=== PATIENT | male | born 1990 | race African-American/Black ===

== ENCOUNTER 2017-05-02 14:02 | Emergency (ER) | payer SELFPAY ==
[~2017-05-02] VITALS: Ht 172.7 cm; Wt 68.0 kg
[2017-05-02 15:25] LABS: BASOPHILS % (AUTO) 0.7 % (0.0-2.0); EOSINOPHILS % (AUTO) 0.1 % (0.0-3.0); HEMATOCRIT 48.1 % (42.0-52.0); LYMPHOCYTES % (AUTO) 18.5 % (20.0-45.0); MEAN CORPUSCULAR VOLUME 73 FL (80-99); MONOCYTES % (AUTO) 6.6 % (1.0-10.0); NEUTROPHILS % (AUTO) 74.1 % (45.0-75.0); PLATELET COUNT 322 K/UL (150-450); RED CELL DISTRIBUTION WIDTH 12.9 % (11.6-14.8); WHITE BLOOD COUNT 13.7 K/UL (4.8-10.8)
[2017-05-02 15:39] LABS: ALANINE AMINOTRANSFERASE 20 U/L (12-78); ALBUMIN 4.5 G/DL (3.4-5.0); ALBUMIN/GLOBULIN RATIO 1.2 (1.0-2.7); ALKALINE PHOSPHATASE 78 U/L (46-116); ANION GAP 9 mmol/L (5-15); ASPARTATE AMINO TRANSFERASE 17 U/L (15-37); BILIRUBIN,TOTAL 1.5 MG/DL (0.2-1.0); BLOOD UREA NITROGEN 9 mg/dL (7-18); CALCIUM 9.7 MG/DL (8.5-10.1); CARBON DIOXIDE 28 MMOL/L (21-32); CHLORIDE 101 MMOL/L (98-107); CREATININE 1.1 MG/DL (0.55-1.30); POTASSIUM 3.3 MMOL/L (3.5-5.1); SODIUM 138 MMOL/L (136-145)
[2017-05-02 15:48] LABS: BILIRUBIN,DIRECT 0.2 MG/DL (0.0-0.3)
[2017-05-02 19:00] VITALS: BP 139/76
[2017-05-02 21:00] VITALS: BP 141/86
--- NOTE | 2017-05-02 21:05 | Emergency Room Report ---
History of Present Illness General Chief Complaint: Behavioral Complaint Source: EMS (ROSE SMITH) Present Illness HPI The patient is a 27-year-old male brought in by EMS for further evaluation. They state that the patient was acting bizarre and was trespassing on private property when police were called. The patient was then brought here for evaluation. He does not provide any information. (ROSE SMITH) Allergies: Coded Allergies: UNABLE TO ASSESS (Unverified , 05/02/17) Patient History Past Medical History: see triage record Pertinent Family History: unable to obtain Reviewed Nursing Documentation: PMH: Agreed, PSxH: Agreed (ROSE SMITH) Nursing Documentation-PMH Past Medical History: Deferred (ROSE SMITH) Review of Systems All Other Systems: limited (ROSE SMITH.ALester) Physical Exam Vital Signs Date Time Temp Pulse Resp B/P (MAP) Pulse Ox O2 Delivery O2 Flow Rate FiO2 05/02/17 13:46 97.5 77 16 132/84 99 Room Air Sp02 EP Interpretation: reviewed, normal General Appearance: no apparent distress, alert, GCS 15, non-toxic Head: normocephalic, atraumatic Eyes: bilateral eye normal inspection, bilateral eye PERRL, bilateral eye EOMI , bilateral eye other - nystagmus ENT: hearing grossly normal, normal pharynx, no angioedema, normal voice Neck: full range of motion, supple/symm/no masses Respiratory: chest non-tender, lungs clear, normal breath sounds, speaking full sentences Cardiovascular #1: regular rate, rhythm, no edema Musculoskeletal: back normal, gait/station normal, normal range of motion, non- tender Neurologic: alert, responsive, sensory intact Psychiatric: other - pt stares off into space. Does not vertbally respond but follows directions Skin: normal color, no rash, warm/dry, well hydrated (ROSE SMITH) Medical Decision Making PA Attestation Dr. Kunz is my supervising physician. Patient management was discussed with my supervising physician (ROSE SMITH) Diagnostic Impression: Primary Impression: Behavioral disorder ER Course The patient is a 27 yo M presenting for altered mental status DDx considered but not limited to: Psychosis, mental disability, drug use, alcohol intoxication, among others PE: vitals WNL. NAD Head NC/AT PERRL. EOMI. Bilat nystagmus Neck is soft and supple. RRR Lungs CTA bilat pt stares off into space. Does not verbally respond but follows directions Alls labs and CT head unremarkable Pt is given IV fluids and food and is resting. He will be signed out to Dr. Kunz Laboratory Tests Test 05/02/17 15:12 White Blood Count 13.7 K/UL (4.8-10.8) H Red Blood Count 6.60 M/UL (4.70-6.10) H Hemoglobin 15.0 G/DL (14.2-18.0) Hematocrit 48.1 % (42.0-52.0) Mean Corpuscular Volume 73 FL (80-99) L Mean Corpuscular Hemoglobin 22.7 PG (27.0-31.0) L Mean Corpuscular Hemoglobin Concent 31.2 G/DL (32.0-36.0) L Red Cell Distribution Width 12.9 % (11.6-14.8) Platelet Count 322 K/UL (150-450) Mean Platelet Volume 8.5 FL (6.5-10.1) Neutrophils (%) (Auto) 74.1 % (45.0-75.0) Lymphocytes (%) (Auto) 18.5 % (20.0-45.0) L Monocytes (%) (Auto) 6.6 % (1.0-10.0) Eosinophils (%) (Auto) 0.1 % (0.0-3.0) Basophils (%) (Auto) 0.7 % (0.0-2.0) Sodium Level 138 MMOL/L (136-145) Potassium Level 3.3 MMOL/L (3.5-5.1) L Chloride Level 101 MMOL/L (98-107) Carbon Dioxide Level 28 MMOL/L (21-32) Anion Gap 9 mmol/L (5-15) Blood Urea Nitrogen 9 mg/dL (7-18) Creatinine 1.1 MG/DL (0.55-1.30) Estimate Glomerular Filtration Rate > 60 mL/min (>60) Glucose Level 102 MG/DL (74-106) Calcium Level 9.7 MG/DL (8.5-10.1) Total Bilirubin 1.5 MG/DL (0.2-1.0) H Direct Bilirubin 0.2 MG/DL (0.0-0.3) Aspartate Amino Transferase (AST) 17 U/L (15-37) Alanine Aminotransferase (ALT) 20 U/L (12-78) Alkaline Phosphatase 78 U/L (46-116) Total Protein 8.2 G/DL (6.4-8.2) Albumin 4.5 G/DL (3.4-5.0) Globulin 3.7 g/dL Albumin/Globulin Ratio 1.2 (1.0-2.7) Salicylates Level < 0.2 ug/mL (2.8-20) L Urine Opiates Screen Negative (NEGATIVE) Acetaminophen Level < 10 MCG/ML (10-30) L Urine Barbiturates Screen Negative (NEGATIVE) Phencyclidine (PCP) Screen Negative (NEGATIVE) Urine Amphetamines Screen Negative (NEGATIVE) Urine Benzodiazepines Screen Negative (NEGATIVE) Urine Cocaine Screen Negative (NEGATIVE) Urine Marijuana (THC) Screen Negative (NEGATIVE) Serum Alcohol < 3 mg/dL Lab Results Impression Unremarkable (ROSE SMITH P.ALester) ER Course I examined the patient He has been sleeping comfortably in his bed, not in acute distress Patient aroused, now awake alert, appears to have speaking difficulty, unsure if he has long standing speech deficits We are able to communicate with the patient as he writes on paper When asked if he has family members, the patient wrote a name, and I asked who it is, and he wrote "I am going to her". When asked if he has a phone number, patient wrote "I dont know" When asked where he lives he did not say (Ana María Kunz M.D.) CT/MRI/US Diagnostic Results CT/MRI/US Diagnostic Results : Imaging Test Ordered: CT head Impression Unremarkable (ROSE SMITH P.A.) Last Vital Signs Date Time Temp Pulse Resp B/P (MAP) Pulse Ox O2 Delivery O2 Flow Rate FiO2 05/02/17 13:46 97.5 77 16 132/84 99 Room Air Status: improved (ROSE SMITH P.ALester) Signed Out To: Dr. Kunz (ROSE SMITH P.A.) Referrals: NOT CHOSEN IPA/,REFERRING (PCP) ROSE SMITH May 02, 2017 21:05 Ana María Kunz M.D. May 03, 2017 01:52
[2017-05-02 23:00] VITALS: BP 113/76
[2017-05-03 01:30] VITALS: BP 123/86
[2017-05-03 03:30] VITALS: BP 120/56
[2017-05-03 06:09] VITALS: BP 109/56
[2017-05-03 07:19] VITALS: BP 111/75
--- NOTE | 2017-05-03 11:08 | Diagnostic Imaging Report ---
Indication: Altered mental status Technique: Continuous helical CT scanning of the head was performed without intravenous contrast material. Axial and coronal 5 mm sections were generated. Dose: Total Dose Length Product - DLP [address] Dose Index - CTDIvol(s) 70.38 mGy. Comparison:None. Findings: The ventricular system is normal in size and configuration. There is no shift of midline structures. No abnormal extra-axial fluid collections are noted. There is no evidence of intracerebral bleeding. No other abnormal high or low density areas are noted within the brain. Impression: Normal CT scan of the head without contrast material. The above report is concordant with preliminary reading. The CT scanner at [facility] is accredited by the [employer] and the scans are performed using protocols designed to limit radiation exposure to as low as reasonably achievable to attain images of sufficient resolution adequate for diagnostic evaluation.
[2017-05-03 11:22] VITALS: BP 119/70
[2017-05-03 15:08] VITALS: BP 123/81
== END 2017-05-03 15:11 | disposition home or self-care (01) ==
LOC: EDBD 14:02 → EMR 16:08
DX: F91.9 Conduct disorder, unspecified (principal)
CPT/HCPCS: 36415; 70450; 80053; 80307; 82248; 85025; 96361; 96374; 99284; G0480; 80329